=== PATIENT | male | born 1950 | race Caucasian/White ===

== ENCOUNTER 2018-05-27 10:25 | Emergency (ER) | payer OTHER ==
[~2018-05-27] VITALS: Ht 177.8 cm; Wt 97.5 kg
[2018-05-27 11:41] VITALS: BP_SYST 116
[2018-05-27 12:20] LABS: BILIRUBIN,URINE NEGATIVE (NEGATIVE); CLARITY/URINE CLEAR (CLEAR); COLOR,URINE YELLOW (YELLOW); GLUCOSE,URINE NEGATIVE (NEGATIVE); KETONES,URINE 1+ (NEGATIVE); LEUKOCYTE ESTERASE ,URINE TRACE (NEGATIVE); NITRITE, URINE NEGATIVE (NEGATIVE); PROTEIN URINE TRACE (NEGATIVE); UROBILINOGEN,URINE 0.2 (0.2-1.0)
[2018-05-27 12:23] LABS: BASOPHILS % (AUTO) 0.6 % (0.0-2.0); EOSINOPHILS % (AUTO) 0.5 % (0.0-4.0); HEMATOCRIT 43.9 % (36-54); HEMOGLOBIN 14.8 g/dL (14.0-18.0); LYMPHOCYTES # (AUTO) 1.3 K/uL (1.0-5.5); LYMPHOCYTES % (AUTO) 12.5 % (20.5-51.5); MEAN CORPUSCULAR HEMOGLOBIN 30 pg (27-31); MEAN CORPUSCULAR HGB CONC 34 % (32-36); MEAN CORPUSCULAR VOLUME 88 fL (79.0-98.0); MONOCYTES # (AUTO) 0.6 K/uL (0.0-1.0); MONOCYTES % (AUTO) 6.2 % (1.7-9.3); NEUTROPHILS # (AUTO) 8.2 K/uL (1.8-7.7); NEUTROPHILS % (AUTO) 80.2 % (40.0-70.0); PLATELET COUNT (AUTO) 244 K/uL (130-430); RED BLOOD CELL COUNT(AUTO) 4.97 MIL/uL (4.2-6.2); RED CELL DISTRIBUTION WIDTH 14.5 % (9.0-15.0); WHITE BLOOD COUNT (AUTO) 10.3 K/uL (4.8-10.8)
[2018-05-27 12:24] LABS: BASOPHILS # (AUTO) 0.1 K/uL (0.0-0.2); EOSINOPHILS # (AUTO) 0.1 K/uL (0.0-0.4)
[2018-05-27 12:30] LABS: BLOOD, URINE TRACE (NEGATIVE)
[2018-05-27 12:39] LABS: CALCIUM 9.1 mg/dL (8.4-11.0); POTASSIUM 3.8 mmol/L (3.5-5.1)
[2018-05-27 12:43] LABS: ALBUMIN 3.8 g/dL (3.4-4.8); TOTAL BILIRUBIN 0.9 mg/dL (0.0-1.0)
[2018-05-27 12:53] LABS: BACTERIA,URINE None Seen /HPF (None Seen); HYALINE CASTS, URINE 0-10 /LPF (None Seen); MUCUS,URINE 2+ /LPF (None Seen)
[2018-05-27] MEDS ORDERED: MAGNESIUM CITRATE 300 ML ORAL SOLUTION PO ONE ×3 (14:45→17:00)
[2018-05-27] MEDS ORDERED: NA PHOS,M-B/NA PHOS,DI-BA 118 ML (FLEET ENEMA) RC ONE ×3 (14:45→17:00)
[2018-05-27 18:42] VITALS: BP_SYST 114
== END 2018-05-27 18:42 | disposition home or self-care (01) ==
LOC: SED 10:25
DX: K59.00 Constipation, unspecified (principal); E78.5 Hyperlipidemia, unspecified
CPT/HCPCS: 36415; 80053; 81000-TC; 82150-TC; 83605; 83690-TC; 85025; 85610-TC; 85730-TC; 99283; 99284